=== PATIENT | female | born 1980 | race African-American/Black ===

== ENCOUNTER 2017-06-24 03:14 | Emergency (ER) | payer OTHER ==
[~2017-06-24] VITALS: Ht 170.2 cm; Wt 107.5 kg
--- NOTE | ~2017-06-24 | EKG ---
[address] [address] ELECTROCARDIOGRAM REPORT Name: QUIANA HERRERA Room #: [facility]ILIONCarlos#: [id number] Admission: 06/24/17 Attend Phys: Discharge: 06/24/17 Date of : 84 Report #: [id number] THIS REPORT FOR: //name// [facility] ED Test Date: 2017-06-24 Test Time: 03:19:14 Pat Name: QUIANA HERRERA Department: Room: Gender: F Medical Coding Specialist: MILLER : 1980 Requested By: Nhan Zacarias Order Number: [id number] MD: Onel Leos Measurements Intervals [place] Rate: 79 P: -11 [place]: 171 QRS: 13 QRSD: 78 T: 18 QT: 366 QTc: 420 Interpretive Statements Sinus rhythm Compared to ECG 07/25/2014 13:53:15 Myocardial infarct finding no longer present Electronically Signed On 06-24-2017 8:13:52 TAPER OPERATOR by Onel Leos [email or web address] <ELECTRONICALLY SIGNED> By: Onel Leos MD 06/24/17 0813 0319 8 Onel Leos MD /SULEMAN
[~2017-06-24 03:14] MED LIST: ACETAMINOPHEN-120 ML PO; CIPRODEX OTIC7.5 ML OT; CLARITIN10 M2; DARVOCET-N 1001 EACH PO; DOXYCYCLINE 10100 MG PO; FLAGYL500 MG PO; GLUCOPHAGE500 MG; HYDROCHLOROTHIA25 M1 PO; IBUPROFEN 800800 MG PO; IMITREX 25 MG T25 M1; IMITREX 25 MG T25 M1 PO; IMITREX 50 MG T50 MG PO; MACROBID 100 M100 M1 PO; NAPROSYN500 MG PO; NEXIUM40 MG PO; NOHOMEMEDICATIONS; PERCOCET 5-3251 EACH PO; PHENERGAN 25 MG25 M1 PO; PREDNISONE50 MG PO; PROTONIX40 MG PO; TOPAMAX50 MG; TOPAMAX50 MG PO; TRAMADOL 50 MG50 MG PO; TRINATE TABLET1 TAB PO; ULTRAM 50MG TAB50 MG PO; ZOFRAN4 MG PO; ZPAK PO
[2017-06-24 03:43] LABS: HEMATOCRIT 36.6 % (37.0-47.0); HEMOGLOBIN 12.2 gm/dL (12.0-15.0); MCH 26.3 pg (26.0-34.0); MCHC 33.4 g/dL (28.0-37.0); MCV 78.6 fL (80.0-100.0); RBC 4.66 mil/uL (4.20-5.00); RDW 14.3 % (10.5-14.5); WBC 5.9 thou/uL (4.0-11.0)
[2017-06-24] MEDS ORDERED: TYLENOL EXTRA500 MG PO (03:44)
[2017-06-24 03:51] LABS: ANION GAP 9 mmol/L (7-16); BUN 9 mg/dL (7-18); CALCIUM 8.6 mg/dL (8.5-10.1); CHLORIDE 105 mmol/L (98-107); CO2 25 mmol/L (21-32); CREATININE 0.8 mg/dL (0.6-1.0); GLUCOSE 98 mg/dL (74-106); POTASSIUM 3.8 mmol/L (3.5-5.1); SODIUM 139 mmol/L (136-145)
[2017-06-24 03:59] LABS: TROPONIN-I < 0.04 ng/mL (<0.06)
[2017-06-24] MEDS ORDERED: TRAMADOL 50 MG50 MG PO (05:26)
== END 2017-06-24 05:36 | disposition home or self-care (01) ==
LOC: ER 03:14
PROVIDERS: Emergency Medicine
DX: R07.9 Chest pain, unspecified (principal); G43.909 Migraine, unspecified, not intractable, without status migrainosus; Z90.49 Acquired absence of other specified parts of digestive tract; Z88.5 Allergy status to narcotic agent

== ENCOUNTER 2018-12-23 10:20 | Emergency (ER) | payer BC, OTHER ==
[~2018-12-23] VITALS: Ht 170.2 cm; Wt 127.9 kg
[~2018-12-23 10:20] MED LIST changes: +TYLENOL EXTRA500 MG PO
[2018-12-23 12:46] LABS: URINE BILIRUBIN NEGATIVE (Negative); URINE BLOOD NEGATIVE (Negative); URINE CLARITY SL CLOUDY; URINE COLOR YELLOW; URINE GLUCOSE-RANDOM* NEGATIVE (Negative); URINE KETONES NEGATIVE (Negative); URINE NITRITE-REFLEX NEGATIVE (Negative); URINE PROTEIN (DIPSTICK) NEGATIVE (Negative); URINE SPECIFIC GRAVITY >= 1.030 (1.005-1.035); URINE UROBILINOGEN 0.2 E.U./dl (0.2-1.0)
[2018-12-23 12:47] LABS: URINE LEUKOCYTES-REFLEX 3+ (Negative)
[2018-12-23 12:57] LABS: CASTS None Seen /LPF (None Seen); CRYSTALS None Seen /LPF (None Seen); SQUAMOUS >10 Many /LPF (0-3)
[2018-12-23 12:58] LABS: BACTERIA-REFLEX 1-9 Few /HPF (None Seen); URINE RBC 0-2 Rare /HPF (0-2)
[2018-12-23] MEDS ORDERED: BACTRIM DS TAB1 EACH PO (13:54)
[2018-12-23 14:02] VITALS: BP 131/66
== END 2018-12-23 14:02 | disposition home or self-care (01) ==
LOC: ER 10:20
PROVIDERS: Emergency Medicine
DX: N89.8 Other specified noninflammatory disorders of vagina (principal); R35.0 Frequency of micturition; G43.909 Migraine, unspecified, not intractable, without status migrainosus; Z90.49 Acquired absence of other specified parts of digestive tract; Z88.8 Allergy status to other drugs, medicaments and biological substances